=== PATIENT | female | born 1960 | race Caucasian/White ===

== ENCOUNTER 2017-11-07 18:46 | Emergency (ER) | payer MEDICAID ==
[2017-11-07 21:46] LABS: ADD MAN DIFF? NO
[2017-11-07] MEDS: ONDANSETRON 4 MG INJ IV (21:48)
[2017-11-07] MEDS: SOD CHLORIDE 0.9% 1,000 ML IV (21:48)
[2017-11-07 21:49] LABS: WHITE BLOOD COUNT 7.3 10^3/ul (4.8-10.8)
[2017-11-07 21:49] LABS: BASOPHILS % 0.3 % (0.0-2.0); EOSINOPHILS # 0.1 10^3/ul (0.0-0.5); EOSINOPHILS % 0.8 % (0.0-7.0); HEMATOCRIT 42.8 % (37.0-47.0); LYMPHOCYTES # 1.5 10^3/ul (0.8-2.9); LYMPHOCYTES % 19.9 % (15.0-51.0); MEAN CORPUSCULAR HEMOGLOBIN 29.1 pg (29.0-33.0); MEAN CORPUSCULAR HGB CONC 32.7 g/dl (32.0-37.0); MEAN PLATELET VOLUME 12.5 fl (7.4-10.4); MONOCYTE # 0.9 10^3/ul (0.3-0.9); MONOCYTES % 12.5 % (0.0-11.0); NEUTROPHIL # 4.8 10^3/ul (1.6-7.5); NEUTROPHILS % 66.1 % (39.0-77.0); PLATELET COUNT 152 10^3/UL (140-415); RED BLOOD COUNT 4.81 10^6/ul (4.20-5.40); RED CELL DISTRIBUTION WIDTH 13.2 % (11.5-14.5)
[2017-11-07 22:22] LABS: ALANINE AMINOTRANSFERASE 85 IU/L (13-69); ALBUMIN 4.9 g/dl (3.3-4.9); ALBUMIN/GLOBULIN RATIO 1.08; ALKALINE PHOSPHATASE 128 IU/L (42-121); ASPARTATE AMINO TRANSFERASE 78 IU/L (15-46); BILIRUBIN,INDIRECT 0.9 mg/dl (0-1.1); BILIRUBIN,TOTAL 0.9 mg/dl (0.2-1.3); BLOOD UREA NITROGEN 9 mg/dl (7-20); CALCIUM 9.8 mg/dl (8.4-10.2); CARBON DIOXIDE 28 mmol/L (21-31); CHLORIDE 100 mmol/L (97-110); GLUCOSE 124 mg/dl (70-220); LIPASE 92 U/L (23-300); SODIUM 140 mmol/L (135-144); TOTAL PROTEIN 9.4 g/dl (6.1-8.1)
[2017-11-07 22:34] LABS: ANION GAP 16 (8-16); POTASSIUM 3.8 mmol/L (3.5-5.1)
== END 2017-11-07 22:59 | disposition home or self-care (01) ==
LOC: FTE 18:46
DX: A08.4 Viral intestinal infection, unspecified (principal); E11.9 Type 2 diabetes mellitus without complications; I10 Essential (primary) hypertension; Z79.84 Long term (current) use of oral hypoglycemic drugs
CPT/HCPCS: 80053; 82962; 83690; 85025; 96374; 99284-25

== ENCOUNTER 2018-03-03 12:04 | Emergency (ER) | payer MEDICAID ==
[2018-03-03] MEDS: ONDANSETRON 4 MG INJ IV (14:04)
[2018-03-03] MEDS: METHYLPREDNISOLONE 125 MG INJ IV (14:04)
[2018-03-03] MEDS: KETOROLAC 15 MG INJ IV (14:04)
[2018-03-03] MEDS: HYDROmorphONE 1 MG/5 ML IV SYRINGE IV (14:05)
[2018-03-03] MEDS: ONDANSETRON (ODT) 4 MG TAB ODT (15:44)
== END 2018-03-03 16:19 | disposition home or self-care (01) ==
LOC: E/R 12:04
DX: M54.41 Lumbago with sciatica, right side (principal); E11.9 Type 2 diabetes mellitus without complications; E03.9 Hypothyroidism, unspecified; I10 Essential (primary) hypertension; Z79.84 Long term (current) use of oral hypoglycemic drugs
CPT/HCPCS: 96374; 96375; 99284-25